=== PATIENT | male | born 1975 | race Caucasian/White ===

== ENCOUNTER 2017-02-18 19:20 | Emergency (ER) | payer BC ==
[2017-02-18 19:38] VITALS: BP 144/83
[2017-02-18] MEDS ORDERED: Tetan/Diph/Pertus SYR(Tdap)* 0.5 ML SYR(BOOSTRIX) use SYR IM ONE (19:40)
--- NOTE | 2017-02-18 20:01 | UC ---
Laceration HPI - HPI Summary HPI Summary: RIGHT INDEX FINGER CUT ON A PIECE OF METAL TWO HOURS AGO. LAST TETANUS SHOT >10 YRS AGO. BLEEDING CONTROLLED AT ARRIVAL - History Of Current Complaint Chief Complaint: UCLaceration Stated Complaint: LACERATION RIGHT INDEX FINGER Time Seen by Provider: 02/18/17 19:28 Hx Obtained From: Patient, Family/Weight Loss [facility] Manager Laceration Location: Finger - RIGHT INDEX Mechanism Of Injury: Sharp Trauma Severity: Mild Related History: Dominant Hand Right - Allergies/Home Medications Allergies/Adverse Reactions: Allergies Allergy/AdvReac Type Severity Reaction Status Date / Time Clindamycin Allergy Unknown Verified 02/18/17 19:46 Reaction Details Diazepam Allergy Anxiety Verified 02/18/17 19:46 Furosemide [From Lasix] Allergy Itching Verified 02/18/17 19:46 Heparin Allergy Itching Verified 02/18/17 19:46 Iodine Allergy Rash Verified 02/18/17 19:46 [place] Flavor Allergy Itching Verified 02/18/17 19:46 Penicillins Allergy Hives Verified 02/18/17 19:46 Shellfish Allergy Allergy Itching Verified 02/18/17 19:46 Sumatriptan [From Imitrex] Allergy Difficulty Verified 02/18/17 19:46 Swallowing Tricyclic Antidepressants Allergy Anxiety Verified 02/18/17 19:46 Home Medications: Home Medications 4-Lead Tens PRN 02/18/17 [History] Acetaminophen TAB* [Tylenol TAB*] 500 mg PO Q4H PRN 02/18/17 [History Confirmed 02/18/17] Gabapentin CAP(*) [Neurontin 300 CAP(*)] 300 mg PO TID 02/18/17 [History Confirmed 02/18/17] Ibuprofen TAB* [Advil TAB*] 400 mg PO Q8H PRN 02/18/17 [History Confirmed ] Rizatriptan Benzoate [Maxalt-Injection Molding Operator] 10 mg PO ONCE PRN 02/18/17 [History Confirmed 02/18/17] lamoTRIgine TAB(*) [LaMICtal TAB(*)] 175 mg PO DAILY 02/18/17 [History Confirmed 02/18/17] PMH/Surg Hx/FS Hx/Imm Hx Previously Healthy: Yes - Surgical History Surgical History: Yes Surgery Procedure, Year, and Place: Gall bladder 2004. right shoulder surgery 2015 - Family History Known Family History: Negative: Blood Disorder - Social History Occupation: Employed Full-time Lives: With Family Alcohol Use: Rare Substance Use Type: None Smoking Status (MU): Heavy Every Day Tobacco Smoker Cessation Counseling: Counseled 3+Min - 10 Min Review of Systems Constitutional: Negative Skin: Other - 0.5 CM LACERATION DORSAL PIP OF RIGHT SECOND FINGER Eyes: Negative ENT: Negative Respiratory: Negative Cardiovascular: Negative Gastrointestinal: Negative Genitourinary: Negative Motor: Negative Neurovascular: Negative Musculoskeletal: Negative Neurological: Negative Psychological: Negative All Other Systems Reviewed And Are Negative: Yes Physical Exam Triage Information Reviewed: Yes Appearance: Well-Appearing, No Pain Distress, Well-Nourished Vital Signs: Initial Vital Signs Temp 99.5 F 02/18/17 19:33 Pulse 97 02/18/17 19:33 Resp 17 02/18/17 19:33 BP 144/83 02/18/17 19:33 Pulse Ox 99 02/18/17 19:33 Vital Signs Reviewed: Yes Eye Exam: Normal ENT Exam: Normal ENT: Positive: Normal ENT inspection, Hearing grossly normal, Pharynx normal, TMs normal Dental Exam: Normal Neck exam: Normal Respiratory Exam: Normal Respiratory: Positive: Chest non-tender, Lungs clear, Normal breath sounds, No respiratory distress Cardiovascular Exam: Normal Cardiovascular: Positive: RRR, No Murmur, Pulses Normal Abdominal Exam: Normal Musculoskeletal Exam: Normal Musculoskeletal: Positive: Strength Intact, ROM Intact, No Edema Neurological Exam: Normal Psychological Exam: Normal Psychological: Positive: Normal Response To Family Skin: Positive: Other - 0.5 CM LACERATION DORSAL PIP OF RIGHT SECOND FINGER Laceration Repair - Laceration Repair 1 Description: Linear - 0.5 CM LACERATION DORSAL PIP OF RIGHT SECOND FINGER Laceration Size After Repair: Length (cm) - 0.5, Width (mm) - 3, Depth (mm) - 3 Modified For Repair: No Cleansing Completed Via Routine Prep: Yes Closure Material: Skin Adhesive, SteriStrips Laceration Course/Dx - Differential Dx - Laceration/Wound Differental Diagnoses: Laceration Provider Diagnoses: 0.5 CM LACERATION DORSAL PIP OF RIGHT SECOND FINGER. REPAIR OF LACERATION USING SKIN ADHESIVE AND 2 X STERISTRIPS Discharge - Discharge Plan Condition: Stable Disposition: HOME Patient Education Materials: Diphtheria Tetanus and Pertussis Vaccine (ED), Finger Laceration (ED) Referrals: [facility]FERR[facility] [Outside] Images Hands: 1 - 0.5 CM LACERATION DORSAL PIP OF RIGHT SECOND FINGER
== END 2017-02-18 19:59 | disposition home or self-care (01) ==
LOC: UCCORT 19:20
DX: S61.210A Laceration without foreign body of right index finger without damage to nail, initial encounter (principal); W45.8XXA Other foreign body or object entering through skin, initial encounter; Y93.9 Activity, unspecified; Y92.9 Unspecified place or not applicable; Z23 Encounter for immunization; Z90.49 Acquired absence of other specified parts of digestive tract; Z88.1 Allergy status to other antibiotic agents; Z88.0 Allergy status to penicillin; Z88.8 Allergy status to other drugs, medicaments and biological substances; F17.210 Nicotine dependence, cigarettes, uncomplicated; Z71.6 Tobacco abuse counseling
CPT/HCPCS: 12001; 90471; 90715; 99202; G0463

== ENCOUNTER 2019-08-13 17:26 | Emergency (ER) | payer BC ==
--- OUTSIDE RECORDS SUMMARY | 2019-08-13 17:31 | XMS REPORT | Continuity of Care Document ---
:1975 External Reference #:[id number] Author Name Monica Motta NP (transmitted by agent of provider Hayde Miller) Address [address], [address] [place] [address] Care Team Providers Name Role Phone Helga Vega MD - Family Medicine Care Team Information Drawing Hand Problems Description No Information Available Social History Type Date Description Comments Sex Unknown Tobacco Use Start: 11/06/89 Current Cigarette Smoker 1 Pack Daily Tobacco Use Start: Unknown Vaping With nicotine Smoking Status Reviewed: 06/27/19 Vaping With nicotine ETOH Use Rarely consumes alcohol Tobacco Use Start: Unknown Patient is a current smoker, smokes every day Recreational Drug Use Former Drug User Exercise Type/Frequency Does not exercise Allergies, Adverse Reactions, Alerts Active Allergies Reaction Severity Comments Date Penicillin 02/05/2019 Amoxicillin 02/05/2019 Ampicillin 02/05/2019 Diazepam 02/05/2019 Tricyclic Antidepressants 02/05/2019 Codeine 02/05/2019 Iodine 02/05/2019 Heparin 02/05/2019 Imitrex 02/05/2019 Lasix 02/05/2019 Clindamycin 02/05/2019 Medications Active Medications SIG Qnty Indications Ordering Provider Date Lamotrigine 1 tab daily Unknown 150mg Tablets Lamotrigine 1 tab daily Unknown 25mg Tablets Dispers Maxalt-JAVA DEVELOPER ARCHITECT take 1 tablet as Unknown 10mg Tablets needed for Dispers migraine Acetaminophen 2 every 6 hours Unknown 500mg Tablets as needed Ibuprofen 200 400-600mg every 6 Unknown 200mg Tablets hours as needed for pain. Immunizations Description No Information Available Vital Signs Date Vital Result Comment 06/27/2019 8:18am Height 72 inches 6'0" Weight 150.00 lb Heart Rate 73 /min BP Systolic Sitting 120 mmHg BP Diastolic Sitting 80 mmHg O2 % BldC Oximetry 97 % BMI (Body Mass Index) 20.3 kg/m2 05/14/2019 8:03am Height 72 inches 6'0" Weight 157.00 lb Per pt, scale not avail. Heart Rate 76 /min BP Systolic Sitting 142 mmHg Lue reg cuff BP Diastolic Sitting 110 mmHg Lue reg cuff Respiratory Rate 16 /min O2 % BldC Oximetry 98 % On Ra BMI (Body Mass Index) 21.3 kg/m2 Results Description No Information Available Procedures Date Code Description Status 03/19/2019 36666 Polysomnography Sleep Staging 4+ Parameters Completed 02/12/2019 73022 Sleep Study Unattended,HRT Rate,Oxygen Sat,Resp Completed Effort/Airflow Medical Devices Description No Information Available Encounters Type Date Location Provider Dx Diagnosis Office Visit 06/27/2019 [facility] G47.33 Obstructive sleep 8:00a [facility] (adult) [facility] (pediatric) G47.10 Hypersomnia, unspecified Office Visit 05/14/2019 [facility] G47.33 Obstructive sleep 8:00a [facility] ap[facility] (adult) [facility] (pediatric) G47.10 Hypersomnia, unspecified F17.210 Nicotine dependence, cigarettes, uncomplicated Office Visit 02/05/2019 7:30a [facility] Tara Larose, R06.83 [facility] R53.83 Other fatigue Assessments Date Code Description Provider 06/27/2019 G47.33 Obstructive sleep apnea (adult) (pediatric) Monica Motta NP 06/27/2019 G47.10 Hypersomnia, unspecified [place] 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[place], ENGINEER SYSTEM ADMINISTRATOR 05/14/2019 G47.33 Obstructive sleep apnea (adult) (pediatric) Monica Motta NP 05/14/2019 G47.10 Hypersomnia, unspecified [place] Mot[place] NP 05/14/2019 F17.210 Nicotine dependence, cigarettes, Monica Motta ENGINEER SYSTEM ADMINISTRATOR uncomplicated 03/19/2019 G47.33 Obstructive sleep apnea (adult) (pediatric) Tara Larose MD 02/12/2019 R06.83 Snoring Tara Larose MD 02/12/2019 R53.83 Other fatigue Tara Larose MD 02/05/2019 R06.83 Snoring Tara Larose MD 02/05/2019 R53.83 Other fatigue Tara Larose MD Plan of Treatment 06/27/2019 - Monica Motta, [id number] Obstructive sleep apnea (adult) ( pediatric)Recommendations:If you have difficulty with your equipment, or need to replace your mask or hoses, please contact your homecare agency. If you have any further questions, please call the [facility] at If you have any sleepiness while driving you MUST avoid operating a vehicle or machinery.G47.10 Hypersomnia, unspecified Functional Status Description No Information Available Mental Status Description No Information Available Referrals Description No Information Available
[2019-08-13 17:39] VITALS: BP 127/87
[2019-08-13] MEDS ORDERED: Ibuprofen TAB* 600 MG PO ONE (17:43)
--- NOTE | 2019-08-13 17:54 | UC ---
Throat Pain/Nasal Misha HPI - HPI Summary HPI Summary: 44-year-old male whose had runny nose had congestion and sore throat over the past couple of days. He denies any fever or chills. He is a Smoker. - History of Current Complaint Chief Complaint: UCRespiratory Stated Complaint: THROAT PAIN Time Seen by Provider: 08/13/19 17:48 Hx Obtained From: Patient Onset/Duration: Gradual Onset Severity: Mild Pain Intensity: 6 Cough: Nonproductive Associated Signs & Symptoms: Positive: Nasal Discharge - Allergies/Home Medications Allergies/Adverse Reactions: Allergies Allergy/AdvReac Type Severity Reaction Status Date / Time clindamycin Allergy Unknown Verified 08/13/19 17:56 Reaction Details codeine Allergy Anaphylatic Verified 08/13/19 17:34 Shock diazepam Allergy Anxiety Verified 08/13/19 17:56 furosemide Allergy Itching Verified 08/13/19 17:56 heparin Allergy Itching Verified 08/13/19 17:56 Iodinated Contrast Media Allergy Hives Verified 08/13/19 17:34 iodine Allergy Rash Verified 08/13/19 17:56 rico Allergy Itching Verified 08/13/19 17:56 melon Allergy Nausea And Verified 08/13/19 17:34 Vomiting MS Clindamycin [Clindamycin] Allergy Unknown Verified 08/13/19 17:34 Reaction Details MS Diazepam [Diazepam] Allergy Anxiety Verified 08/13/19 17:34 MS Furosemide [From Lasix] Allergy Itching Verified 08/13/19 17:34 MS Heparin [Heparin] Allergy Itching Verified 08/13/19 17:34 MS Iodine [Iodine] Allergy Rash Verified 08/13/19 17:34 MS [place] Flavor Allergy Itching Verified 08/13/19 17:34 [[place] Flavor] MS Penicillins [Penicillins] Allergy Hives Verified 08/13/19 17:34 MS Shellfish Allergy Allergy Itching Verified 08/13/19 17:34 [Shellfish Allergy] MS Sumatriptan [From Imitrex] Allergy Difficulty Verified 08/13/19 17:34 Swallowing MS Tricyclic Antidepressants Allergy Anxiety Verified 08/13/19 17:34 [Tricyclic Antidepressants] Penicillins Allergy Hives Verified 08/13/19 17:56 Pork/Porcine Containing Allergy Migraines Verified 08/13/19 17:34 Products shellfish derived Allergy Itching Verified 08/13/19 17:56 sumatriptan Allergy Difficulty Verified 08/13/19 17:56 Swallowing Tricyclic Antidepressants Allergy Anxiety Uncoded 08/13/19 17:56 Home Medications: Home Medications Modafinil TAB* [Provigil TAB*] 100 mg PO DAILY 08/13/19 [History Confirmed 08/13] PMH/Surg Hx/FS Hx/Imm Hx Previously Healthy: Yes - Surgical History Surgical History: Yes Surgery Procedure, Year, and Place: Gall bladder 2005. right shoulder surgery 2016. APPY 2018 - Family History Known Family History: Positive: Non-Contributory Negative: Blood Disorder - Social History Alcohol Use: Rare Substance Use Type: None Smoking Status (MU): Heavy Every Day Tobacco Smoker Amount Used/How Often: 1 PPD Review of Systems All Other Systems Reviewed And Are Negative: Yes ENT: Positive: Sore Throat, Nasal Discharge Is Patient Immunocompromised?: No Physical Exam Triage Information Reviewed: Yes Appearance: Well-Appearing, No Pain Distress, Well-Nourished Vital Signs: Initial Vital Signs Temp 100.9 F 08/13/19 17:35 Pulse 111 08/13/19 17:35 Resp 18 08/13/19 17:35 BP 127/87 08/13/19 17:35 Pulse Ox 99 08/13/19 17:35 Vital Signs Reviewed: Yes Eyes: Positive: Conjunctiva Clear ENT: Positive: Hearing grossly normal, Pharyngeal erythema - Mild tonsillar erythema., Nasal congestion, Nasal drainage - Clear nasal coryza, TMs normal, Uvula midline Neck: Positive: Supple, Nontender, No Lymphadenopathy Respiratory: Positive: Lungs clear, Normal breath sounds, No respiratory distress, No accessory muscle use Cardiovascular: Positive: No Murmur, Pulses Normal, Tachycardia Abdomen Description: Positive: Nontender, No Organomegaly, Soft. Negative: Hepatomegaly, Splenomegaly Bowel Sounds: Positive: Present Musculoskeletal Exam: Normal Neurological Exam: Normal Psychological Exam: Normal Skin Exam: Normal Throat Pain/Nasal Course/Dx - Course Course Of Treatment: Rapid strep test: Negative Patient is comfortable here. I believe he has a viral infection. He can do warm saltwater gargles, throat lozenges, Tylenol every 4 hours and alternate with Motrin as directed for fever. He is to follow-up with his primary care provider if no improvement in 4 or 5 days. - Differential Dx/Diagnosis Provider Diagnosis: Pharyngitis, URI (upper respiratory infection) Discharge ED - Sign-Out/Discharge Documenting (check all that apply): Patient Departure All imaging exams completed and their final reports reviewed: No Studies - Discharge Plan Condition: Good Disposition: HOME Patient Education Materials: Upper Respiratory Infection (DC) Referrals: Helga Lovelace MD [Primary Care Provider] - Additional Instructions: Increase fluids, [id number] cold medicines as directed. Follow-up with your primary care provider if no improvement in 3 or 4 days. - Billing Disposition and Condition Condition: GOOD Disposition: Home
== END 2019-08-13 18:00 | disposition home or self-care (01) ==
LOC: UCEAST 17:26
DX: J02.9 Acute pharyngitis, unspecified (principal); J06.9 Acute upper respiratory infection, unspecified; F17.210 Nicotine dependence, cigarettes, uncomplicated; Z88.1 Allergy status to other antibiotic agents; Z88.5 Allergy status to narcotic agent; Z88.8 Allergy status to other drugs, medicaments and biological substances; Z91.041 Radiographic dye allergy status; Z91.09 Other allergy status, other than to drugs and biological substances; Z91.018 Allergy to other foods; Z88.0 Allergy status to penicillin; Z91.013 Allergy to seafood
CPT/HCPCS: 87651; 99212; A9270-GY; G0463